=== PATIENT | male | born 1995 | race Caucasian/White ===

== ENCOUNTER 2016-09-03 17:43 | Emergency (ER) | payer OTHER ==
[2016-09-03 17:49] VITALS: BP 116/88; PULSE 66; TEMP 98; BMI 19.3
[2016-09-03] MEDS ORDERED: METOCLOPRAMIDE HCL INJECTION 10 MG/2 ML VIAL IVPB ONE (18:52)
[2016-09-03] MEDS ORDERED: SODIUM CHLORIDE 1,000 ML IV SCH (19:00)
[2016-09-03] MEDS ORDERED: METOCLOPRAMIDE HCL INJECTION 10 MG/2 ML VIAL ONE (19:22)
[2016-09-03 19:24] LABS: BASOPHIL 0.2 % (0-2.0); EOSINOPHIL 2.5 % (0-4.5); MCH 31.8 pg (25.7-33.7); MEAN CELL VOLUME 90.8 fl (80-96); MEAN PLT VOLUME 8.4 fl (7.5-11.1); NEUTROPHILS 74.4 % (42.8-82.8); PLATELET COUNT 166 K/MM3 (134-434); RDW 12.4 % (11.9-15.9); WHITE BLOOD COUNT 6.2 K/mm3 (4.0-10.0)
--- NOTE | 2016-09-03 19:29 | PDOC ---
History of Present Illness - General Chief Complaint: Migraine Headache Stated Complaint: Migraine Headache Time Seen by Provider: 09/03/16 17:50 History Source: Patient Exam Limitations: No Limitations - History of Present Illness Initial Comments: 09/03/16 19:22 CHIEF COMPLAINT: Migraine HISTORY OF PRESENT ILLNESS: This is a 20-year-old male with a history of migraine headaches (last had normal brain MRI about 3 years ago) who presents for evaluation of 4 days of headache, unrelieved by Excedrin. He reports associated nausea and bilateral upper extremity numbness, which are normal symptoms for him. He reports that his headaches usually resolve more quickly and do not usually require ED visits for medication. In addition, he reports fever of 104, throat pain, and nosebleed (about 1 tsp) yesterday. V/s on arrival are all within normal limits. REVIEW OF SYSTEMS: GENERAL/CONSTITUTIONAL: Fever. No weakness. No weight change. HEAD, EYES, EARS, NOSE AND THROAT: Throat pain. Epistaxis yesterday. No change in vision. No ear pain or discharge. CARDIOVASCULAR: No chest pain or palpitations. RESPIRATORY: No cough, wheezing, or shortness of breath. GASTROINTESTINAL: Nausea. No vomiting, diarrhea or constipation. GENITOURINARY: No dysuria, frequency, or change in urination. MUSCULOSKELETAL: No joint or muscle swelling or pain. No neck or back pain. SKIN: No rash or easy bruising. NEUROLOGIC: See HPI. PSYCHIATRIC: No depression or anxiety. ENDOCRINE: No increased thirst. No abnormal weight change. HEMATOLOGIC/LYMPHATIC: No anemia, easy bleeding, or history of blood clots. ALLERGIC/IMMUNOLOGIC: No hives or skin allergy. No latex allergy. PHYSICAL EXAM: GENERAL: The patient is awake, alert, and fully oriented, in no acute distress. HEAD: Normal with no signs of trauma. ENT: Pupils equal, round and reactive to light, extraocular movements intact, sclera anicteric, conjunctiva clear. Neck supple. LUNGS: Clear to auscultation bilaterally. Normal excursion. No respiratory distress or use of accessory muscles. CV: RRR, S1/S2, no MRG. Cap refill < 2 sec. ABDOMEN: Soft, non-distended, non-tender. EXTREMITIES: Normal range of motion, no edema. NEUROLOGICAL: Normal speech, normal gait. CN II-XII grossly intact. PSYCH: Normal mood, normal affect. SKIN: Warm, dry, normal turgor, no rashes or lesions noted. Past History - Past Medical History Allergies/Adverse Reactions: Allergies Allergy/AdvReac Type Severity Reaction Status Date / Time No Known Allergies Allergy Verified 09/03/16 17:46 Home Medications: Ambulatory Orders Ibuprofen [Motrin -] 600 mg PO QID PRN #30 tablet 09/03/16 Ondansetron [Zofran Odt -] 4 mg SL TID PRN #21 od.tablet 09/03/16 Other medical history: migraines - Psycho/Social/Smoking Cessation Hx Anxiety: No Suicidal Ideation: No Smoking History: Never smoked Have you smoked in the past 12 months: No Information on smoking cessation initiated: No Hx Alcohol Use: No Drug/Substance Use Hx: No Substance Use Type: None *Physical Exam - Vital Signs Last Vital Signs Temp Pulse Resp BP Pulse Ox 98.0 F 66 18 116/88 100 09/03/16 17:46 09/03/16 17:46 09/03/16 17:46 09/03/16 17:46 09/03/16 17:46 ED Treatment Course - LABORATORY CBC & Chemistry Diagram: 09/03/16 19:10 09/03/16 19:10 Medical Decision Making - Medical Decision Making 09/03/16 19:35 A/P: 20 year old male with migraine, also with throat pain, reported fever, and epistaxis. 1. Rapid strep/throat culture 2. IVF, Reglan + Benadryl for symptomatic relief 3. Basic labs 4. Re-assess 09/03/16 20:20 Labs reviewed and are unremarkable. Patient re-evaluated and is symptom-free. Followup instructions and return precautions reviewed. *DC/Admit/Observation/Transfer Diagnosis at time of Disposition: Migraine Qualifiers: Migraine type: unspecified Status migrainosus presence: without status migrainosus Intractability: not intractable Qualified Code(s): G43.909 - Migraine, unspecified, not intractable, without status migrainosus - Discharge Dispostion Admit: No - Prescriptions Prescriptions: Ibuprofen [Motrin -] 600 mg PO QID PRN #30 tablet PRN Reason: Pain Ondansetron [Zofran Odt -] 4 mg SL TID PRN #21 od.tablet PRN Reason: Nausea - Referrals Referrals: Epifanio Govea MD [Staff Physician] - Call tomorrow - Patient Instructions Printed Discharge Instructions: DI for Migraine Additional Instructions: -Rest and stay well-hydrated -Take Ibuprofen and Zofran as needed for headache and nausea -Return here for sudden/worsening headache, weakness, or any other concerning symptoms - Post Discharge Activity Work/School Note: Back to Work
[2016-09-03 19:55] LABS: ALBUMIN 4.5 g/dl (3.4-5.0); ALK PHOS 62 U/L (45-117); ANION GAP 5 (8-16); BILIRUBIN,TOTAL 0.4 mg/dL (0.2-1.0); CALCIUM 9.3 mg/dL (8.5-10.1); CO2 30 mmol/L (21-32); CREATININE 0.9 mg/dL (0.7-1.3); GLUCOSE,RANDOM 95 mg/dL (74-106); INR 1.09 (0.82-1.09); SGOT/AST 14 U/L (15-37); SGPT/ALT 23 U/L (12-78); TOT PROT 7.8 g/dl (6.4-8.2)
== END 2016-09-03 20:47 | disposition home or self-care (01) ==
LOC: JERFT 17:43
PROC: 3E0337Z Introduction of Electrolytic and Water Balance Substance into Peripheral Vein, Percutaneous Approach (ICD-10-PCS; principal; 2016-09-03)
PROC: 3E033GC Introduction of Other Therapeutic Substance into Peripheral Vein, Percutaneous Approach (ICD-10-PCS; 2016-09-03)
PROC: 3E033GC Introduction of Other Therapeutic Substance into Peripheral Vein, Percutaneous Approach (ICD-10-PCS; 2016-09-03)
DX: G43.909 Migraine, unspecified, not intractable, without status migrainosus (principal)
CPT/HCPCS: 36415; 80053; 85025; 85610; 87070; 87430; 96361; 96374; 96375; 99281-25